=== PATIENT | male | born 1950 | race Asian ===

== ENCOUNTER 2022-04-13 12:44 | Emergency (ER) | payer OTHER, MEDICAID ==
[~2022-04-13] VITALS: Ht 167.6 cm; Wt 82.0 kg
[2022-04-13] MEDS ORDERED: DILTIAZEM HCL 120MG CAPSULE CD 24HR PO ONE (13:45)
[2022-04-13] MEDS ORDERED: DILTIAZEM HCL 5MG/ML 5ML VIAL IV ONE (13:45)
[2022-04-13 14:07] LABS: HEMATOCRIT. 40.3 % (42.0-52.0); HEMOGLOBIN. 13.5 g/dL (14.0-18.0); MEAN CORPUSCULAR HEMOGLOBIN 28.3 pg (28.0-32.0); MEAN CORPUSCULAR VOLUME 84.5 fL (80.0-94.0); MEAN PLATELET VOLUME 9.1 fl (7.4-10.4); PLATELET 218 x1000/uL (130-400); RED BLOOD CELL COUNT 4.77 mill/uL (4.7-6.1); RED CELL DISTRIBUTION WIDTH 14.5 % (11.6-14.6)
[2022-04-13 14:20] LABS: CHLORIDE 103 mEq/L (98-107)
[2022-04-13 14:30] LABS: PLATELET ESTIMATE NORMAL
[2022-04-13] MEDS ORDERED: ASPIRIN 81MG TABLET PO ONE (17:15)
[2022-04-13] MEDS ORDERED: ENOXAPARIN 100MG/ML SYR SUBCUT ONE (17:15)
[2022-04-13 17:30] VITALS: BP 123/60
== END 2022-04-13 18:18 | disposition left against medical advice (07) ==
LOC: ER 13:31 → EDBEDREQTM 17:30 → EDBEDREQ 17:30 → ENRESERV 17:39 → CANRESERV 17:39 → CANBEDREQ 18:11 → ER 18:18
DX: I48.91 Unspecified atrial fibrillation (principal); I10 Essential (primary) hypertension; E11.9 Type 2 diabetes mellitus without complications
CPT/HCPCS: 36415; 71045; 80053; 83880; 84484; 85025; 93005; 96374; 99291; J3490